=== PATIENT | male | born 1950 | race Caucasian/White ===

== ENCOUNTER 2022-04-24 19:16 | Emergency (ER) | payer MEDICARE, BC ==
[2022-04-24] MEDS ORDERED: traMADol 50 MG Tab PO ONE (19:17)
== END 2022-04-24 20:05 | disposition home or self-care (01) ==
LOC: FB.ED 19:16
DX: M75.42 Impingement syndrome of left shoulder (principal); X50.0XXA Overexertion from strenuous movement or load, initial encounter
CPT/HCPCS: 73030; 99283; A9270